=== PATIENT | female | born 1950 | race Caucasian/White ===

== ENCOUNTER 2018-12-30 13:34 | Emergency (ER) | payer OTHER ==
[2018-12-30 14:35] LABS: Absolute Lymphocytes (CBC) 2.2 K/uL (0.7-4.9); Absolute Monocytes 0.5 K/uL (0.1-1.3); Absolute Neutrophil 6.4 K/uL (1.8-8.0); Basophils % 0.7 % (0-1.3); Eosinophils % 1.9 % (0-4.4); Hematocrit 45.3 % (36.0-45.0); MPV 8.9 fL (7.6-11.3); Monocytes % 5.8 % (3.3-12.3); RBC Red Blood Cell Count 5.06 M/uL (3.86-4.86)
[2018-12-30 14:52] LABS: ALT/SGPT 22 U/L (12-78); AST/SGOT 15 U/L (15-37); Albumin 3.7 g/dL (3.4-5.0); Alkaline Phosphatase 126 U/L (45-117); BUN Blood Urea Nitrogen 14 mg/dL (7-18); Bicarbonate 31 mmol/L (21-32); Bilirubin Direct 0.1 mg/dL (0-0.2); Bilirubin Total 0.5 mg/dL (0.2-1.0); Glucose Level 99 mg/dL (74-106); NT PRO-BNP 202 pg/mL (<125); Protein, Total 7.4 g/dL (6.4-8.2); Sodium Level 140 mmol/L (136-145); Troponin (Emerg Dept Use Only) < 0.02 ng/mL (0.0-0.045)
[2018-12-30 14:57] LABS: Protime INR 1.02
--- NOTE | 2018-12-30 14:57 | RAD REPORT ---
EXAM DESCRIPTION: [place] Single View12/30/2018 2:46 pm CLINICAL HISTORY: Chest pain COMPARISON: none FINDINGS: The lungs appear clear of acute infiltrate. The heart is normal size IMPRESSION: No acute abnormalities displayed
--- NOTE | 2018-12-30 15:56 | RAD REPORT ---
EXAM DESCRIPTION: CT - Chest For Pe Angio - 12/30/2018 3:39 pm CLINICAL HISTORY: Chest pain, shortness of breath COMPARISON: Chest films date TECHNIQUE: Dynamically enhanced 3 mm thick images of the chest were obtained during administration o f approximately 150mL Isovue 370 IV contrast. Coronal and oblique MIP reconstruction images were gene rated and reviewed. Exam utilizes a protocol to evaluate the pulmonary arterial tree. All CT scans are performed using dose optimization technique as appropriate and may include automated exposure control or mA/KV adjustment according to patient size. FINDINGS: No pulmonary emboli are identified. The aorta as imaged shows no acute or suspicious finding. No pericardial thickening or effusion. No mass or focal infiltrate. Interstitial markings are minimally prominent. This is possibly baseline for the patient. Minimal amount of interstitial edema or infiltrate not excluded. Minimal atelectasi s changes are present. No pleural effusion or pleural thickening. No mediastinal or hilar suspicious masses. No chest wall masses or abnormal axillary lymphadenopathy. IMPRESSION: No pulmonary emboli identified. No focal infiltrate or focal lung parenchymal process seen. Interstitial markings are mildly prominen t which may be baseline for the patient. A minimal amount of interstitial edema or infiltrate not exc luded.
--- NOTE | 2018-12-30 16:34 | EDPHYS ---
Physician Documentation [facility] Name: Vonnie Phillips Age: 68 yrs Sex: Female : 1950 Arrival Date: 12/30/2018 Time: 13:35 Bed 18 Private MD: Joesph Myers H ED Physician Jarrett Roth HPI: 12/30 13:59 This 68 yrs old Female presents to ER via Ambulatory with complaints of Chest jmm Pressure, Shortness Of Breath. 13:59 The patient or guardian reports chest pain that is located primarily in the substernal [facility] area. Onset: gradually, 3 day(s) ago. The pain does not radiate. The chest pain is described as a pressure. Duration: The patient or guardian reports a single episode, that is still ongoing. This is a 68 year old female with a history of htn, that presents to the ED with complaints of chest pressure beginning 3 days ago and has been constant for the past 24 hours. Symptoms are worsened with exertion. Pain does not radiate. . Historical: - Allergies: 13:55 Topamax; sg 13:55 CEPHALOSPORINS; sg 13:55 Levofloxacin; sg 13:55 Sulfa (Sulfonamide Antibiotics); sg 13:59 Keflex; sg 13:59 PENICILLINS; sg 13:59 Augmentin; sg 13:59 Meprobamate; sg 13:59 Talwin; sg 13:59 Valium; sg 13:59 flexeprol; sg - Home Meds: 13:59 Wellbutrin Oral [Active]; Lamictal Oral [Active]; [place] Oral [Active]; sg - PMHx: 13:59 Hypertension; TIA; CEPHALGIA; LARYNGITIS; Kidney stones; Bipolar disorder; sg - PSHx: 13:59 Cholecystectomy; Tubal ligation; sg - Immunization history:: Adult Immunizations up to date. - Social history:: Smoking status: unknown. - Ebola Screening: : No symptoms or risks identified at this time. ROS: 13:59 Constitutional: Negative for fever, chills, and weight loss. jmm 13:59 Cardiovascular: Positive for chest pain. 13:59 Respiratory: Positive for shortness of breath. 13:59 All other systems are negative. Exam: 13:59 Constitutional: This is a well developed, well nourished patient who is awake, alert, jmm and in no acute distress. Head/Face: atraumatic. Eyes: EOMI, no conjunctival erythema appreciated ENT: Moist Mucus Membranes Neck: Trachea midline, Supple Chest/axilla: Normal chest wall appearance and motion. 13:59 Abdomen/GI: Non distended, soft Back: Normal ROM Skin: General appearance color normal MS/ Extremity: Moves all extremities, no obvious deformities appreciated, no edema noted to the lower extremities Neuro: Awake and alert, normal gait Psych: Behavior is normal, Mood is normal, Patient is cooperative and pleasant 13:59 Cardiovascular: Rate: normal, Rhythm: regular. 13:59 Respiratory: the patient does not display signs of respiratory distress, Respirations: normal, Breath sounds: are clear throughout. Vital Signs: 13:53 BP 181 / 71; Pulse 77; Resp 18; Temp 98.2; Pulse Ox 100% ; Weight 63.05 kg; Height 5 sg ft. 1 in. (154.94 cm); Pain 8/10; 15:03 BP 133 / 72; Pulse 62; Resp 11; Pulse Ox 100% on R/A; aj1 16:05 BP 167 / 76; Pulse 65; Resp 18; Pulse Ox 98% on R/A; aj1 13:53 Body Mass Index 26.26 (63.05 kg, 154.94 cm) MDM: 14:05 Patient medically screened. [facility] 16:32 Data reviewed: vital signs, nurses notes, lab test result(s), EKG, radiologic studies, [facility] plain films. Data interpreted: Pulse oximetry: on room air is 100 %. Interpretation: normal. Test interpretation: by ED physician or midlevel provider: ECG. ED course: I discussed the patient with Dr. Nuñez for admission. Admission was refused. Dr. Nuñez did visit the patient at bedside and offered a close cardiac follow up for tomorrow. The patient's case was discussed with Dr. Mishra whom will see the patient in clinic tomorrow morning at 0800. . 12/30 13:59 Order name: Basic Metabolic Panel; Complete Time: 15:[address] [facility] 12/30 13:59 Order name: CBC with Diff; Complete Time: 15:[address] [facility] 12/30 13:59 Order name: LFT's; Complete Time: 15:[address] [facility] 12/30 13:59 Order name: Magnesium; Complete Time: 15:[address] [facility] 12/30 13:59 Order name: NT PRO-BNP; Complete Time: 15:[address] [facility] 12/30 13:59 Order name: PT-INR; Complete Time: 15:[address] [facility] 12/30 13:59 Order name: Troponin (emerg Dept Use Only); Complete Time: 15:[address] [facility] 12/30 13:59 Order name: XRAY Chest (1 view); Complete Time: 15:[address] [facility] 12/30 13:59 Order name: EKG; Complete Time: 14:[address] [facility] 12/30 13:59 Order name: Cardiac monitoring; Complete Time: 14:[address] [facility] 12/30 13:59 Order name: EKG - Nurse/Tech; Complete Time: 14:[address] [facility] 12/30 13:59 Order name: IV Saline Lock; Complete Time: 14:[address] [facility] 12/30 13:59 Order name: Labs collected and sent; Complete Time: 14:[address] [facility] 12/30 15:17 Order name: CT Chest For PE Angio; Complete Time: 15:[address] [facility] 12/30 13:59 Order name: O2 Per Protocol; Complete Time: 14: [facility] 12/30 13:59 Order name: O2 Sat Monitoring; Complete Time: 14:[address] [facility] Administered Medications: No medications were administered Disposition: 12/30/18 16:33 Discharged to Home. Impression: Chest pain, unspecified. - Condition is Stable. - Discharge Instructions: Nonspecific Chest Pain. - Medication Reconciliation Form, Thank You Letter, Antibiotic Education, Prescription Opioid Use form. - Follow up: Sander Kang MD; When: Tomorrow; Reason: at 0800 am. Addendum: 12/31/2018 19:00 Co-signature as Attending Physician, Jarrett Roth MD I agree with the assessment and k dr plan of care. Signatures: Dispatcher [employer] EDMeghna Burch RN RN aj1 Martínez Goodman RN RN sg Rittger, Kevin, MD MD kdr Mickail, Joel, PA PA [facility] Corrections: (The following items were deleted from the chart) 12/30 17:06 16:33 12/30/2018 16:33 Discharged to Home. Impression: Chest pain, unspecified. aj1 Condition is Stable. Forms are Medication Reconciliation Form, Thank You Letter, Antibiotic Education, Prescription Opioid Use. Follow up: Sander Kang; When: Tomorrow; Reason: at 0800 am. guadalupe
--- NOTE | 2018-12-30 16:34 | ER ---
Nurse's Notes [facility] Name: Vonnie Phillips Age: 68 yrs Sex: Female : 1950 Arrival Date: 12/30/2018 Time: 13:35 Bed 18 Private MD: Joesph Myers H Diagnosis: Chest pain, unspecified Presentation: 12/30 13:38 Transition of care: patient was not received from another setting of care. Onset of sg symptoms was December 30, 2018. Risk Assessment: Do you want to hurt yourself or someone else? Patient reports no desire to harm self or others. Initial Sepsis Screen: Does the patient meet any 2 criteria? No. Patient's initial sepsis screen is negative. Does the patient have a suspected source of infection? No. Patient's initial sepsis screen is negative. Care prior to arrival: None. 13:38 Acuity: DARBY 3 sg 13:38 Method Of Arrival: Ambulatory sg 13:38 Presenting complaint: Patient states: Has had midsternal CP that feels like something sg sitting on my chest, indigestion and shortness of breath as well for several days, Was seen by PCP and told to take Zantac OTC, pt reports she went to Urgent care for the symptoms an EKG was done and she was instructed to come to the ED for evaluation. Historical: - Allergies: 13:55 Topamax; sg 13:55 CEPHALOSPORINS; sg 13:55 Levofloxacin; sg 13:55 Sulfa (Sulfonamide Antibiotics); sg 13:59 Keflex; sg 13:59 PENICILLINS; sg 13:59 Augmentin; sg 13:59 Meprobamate; sg 13:59 Talwin; sg 13:59 Valium; sg 13:59 flexeprol; sg - Home Meds: 13:59 Wellbutrin Oral [Active]; Lamictal Oral [Active]; [place] Oral [Active]; sg - PMHx: 13:59 Hypertension; TIA; CEPHALGIA; LARYNGITIS; Kidney stones; Bipolar disorder; sg - PSHx: 13:59 Cholecystectomy; Tubal ligation; sg - Immunization history:: Adult Immunizations up to date. - Social history:: Smoking status: unknown. - Ebola Screening: : No symptoms or risks identified at this time. Screenin:33 Abuse screen: Denies threats or abuse. Denies injuries from another. Nutritional aj1 screening: No deficits noted. Tuberculosis screening: No symptoms or risk factors identified. 16:53 Fall Risk None identified. aj1 Assessment: 14:33 General: Appears in no apparent distress. uncomfortable, Behavior is calm, cooperative, aj1 appropriate for age. Pain: Complains of pain in mid-sternal area Pain does not radiate. Pain currently is 5 out of 10 on a pain scale. Quality of pain is described as pressure, Pain began for several months, that has gotten worse over the past couple days Is intermittent. Neuro: Level of Consciousness is awake, alert, obeys commands, Oriented to person, place, time, situation. Cardiovascular: Reports chest pain, shortness of breath, Heart tones S1 S2 present Patient's skin is warm and dry. Rhythm is sinus rhythm. Respiratory: Reports shortness of breath Airway is patent Respiratory effort is even, unlabored, Respiratory pattern is regular, symmetrical, Breath sounds are clear bilaterally. GI: No signs and/or symptoms were reported involving the gastrointestinal system. : No signs and/or symptoms were reported regarding the genitourinary system. EENT: No signs and/or symptoms were reported regarding the EENT system. Derm: No signs and/or symptoms reported regarding the dermatologic system. Skin is pink, warm \T\ dry. normal. Musculoskeletal: No signs and/or symptoms reported regarding the musculoskeletal system. Circulation, motion, and sensation intact. 15:02 Reassessment: Patient appears in no apparent distress at this time. No changes from aj1 previously documented assessment. Patient and/or family updated on plan of care and expected duration. Pain level reassessed. Patient is alert, oriented x 3, equal unlabored respirations, skin warm/dry/pink. 16:05 Reassessment: Patient appears in no apparent distress at this time. No changes from aj1 previously documented assessment. Patient and/or family updated on plan of care and expected duration. Pain level reassessed. Patient is alert, oriented x 3, equal unlabored respirations, skin warm/dry/pink. Vital Signs: 13:53 BP 181 / 71; Pulse 77; Resp 18; Temp 98.2; Pulse Ox 100% ; Weight 63.05 kg; Height 5 sg ft. 1 in. (154.94 cm); Pain 8/10; 15:03 BP 133 / 72; Pulse 62; Resp 11; Pulse Ox 100% on R/A; aj1 16:05 BP 167 / 76; Pulse 65; Resp 18; Pulse Ox 98% on R/A; aj1 13:53 Body Mass Index 26.26 (63.05 kg, 154.94 cm) ED Course: 13:35 Patient arrived in ED. rg4 13:36 Joesph Myers DO is Private Physician. rg4 13:38 Arm band placed on. sg 13:39 Triage completed. 13:57 Saqib Dunn PA is PHCP. [facility] 13:57 Jarrett Roth MD is Attending Physician. jm 14:08 Meghna Gaona, RN is Primary Nurse. aj1 14:10 EKG done, by technology analyst. reviewed by Saqib BERNAL. 3 14:13 Patient has correct armband on for positive identification. Placed in gown. Bed in low mh5 position. Call light in reach. Warm blanket given. quality assurance monitor final on. Pulse ox on. NIBP on. 14:27 X-ray completed. Portable x-ray completed in exam room. Patient tolerated procedure jb2 well. 14:33 No provider procedures requiring assistance completed. Inserted saline lock: 22 gauge aj1 in right forearm, using aseptic technique. Blood collected. Patient maintains SpO2 saturation greater than 95% on room air. 14:47 XRAY Chest (1 view) In Process Unspecified. EDMS 15:39 CT Chest For PE Angio In Process Unspecified. EDMS 15:39 CT completed. Patient tolerated procedure well. Patient moved back from CT. sd 16:33 Sander Kang MD is Referral Physician. [facility] 16:52 IV discontinued, intact, bleeding controlled, No redness/swelling at site. Pressure aj1 dressing applied. Administered Medications: No medications were administered Outcome: 16:33 Discharge ordered by . [facility] 16:53 Discharged to home ambulatory. aj1 16:53 Condition: good 16:53 Discharge instructions given to patient, Instructed on discharge instructions, follow up and referral plans. Demonstrated understanding of instructions, follow-up care. 17:06 Patient left the ED. aj1 Signatures: Dispatcher [employer] EDMS Meghna Gaona, KELLY RN aj1 Martínez Goodman RN RN Saqib Dunn PA PA jmm Buechter, Jesse jb2 Angelic Preciado rg4 Jhonatan Telles Maria 5 Sharon Kearns 3
--- NOTE | 2018-12-31 06:52 | EKG ---
Test Date: 2018-12-30 Test Time: 14:05:25 Compression Molding Machine Setter: CHEPE MEASUREMENT RESULTS: Intervals: Rate: 65 GA: 138 QRSD: 74 QT: 420 QTc: 436 [place]: P: 49 GA: 138 QRS: 3 T: 73 INTERPRETIVE STATEMENTS: Normal sinus rhythm Nonspecific ST abnormality Abnormal ECG No previous ECG available for comparison Electronically Signed On 12-31-18 06:51:47 TURNTABLE ENGINEER by Sander Kang
== END 2018-12-30 17:06 | disposition home or self-care (01) ==
LOC: ER 13:34
DX: R07.9 Chest pain, unspecified (principal); I10 Essential (primary) hypertension; F31.9 Bipolar disorder, unspecified; Z88.0 Allergy status to penicillin; Z88.1 Allergy status to other antibiotic agents; Z88.2 Allergy status to sulfonamides; Z88.5 Allergy status to narcotic agent; Z88.8 Allergy status to other drugs, medicaments and biological substances
CPT/HCPCS: 36415; 71045; 71275; 80048; 80076; 83735; 83880; 84484; 85025; 85610; 93005; 99285; Q9967

== ENCOUNTER 2019-01-12 06:47 | Day surgery (SDC) | payer OTHER ==
[2019-01-10 14:48] LABS: Absolute Lymphocytes (CBC) 2.3 K/uL (0.7-4.9); Absolute Monocytes 0.5 K/uL (0.1-1.3); Absolute Neutrophil 5.6 K/uL (1.8-8.0); Basophils % 0.7 % (0-1.3); Eosinophils % 1.8 % (0-4.4); Hematocrit 42.9 % (36.0-45.0); Lymphocytes % 26.1 % (15.3-44.8); MPV 9.7 fL (7.6-11.3); Monocytes % 6.2 % (3.3-12.3); RBC Red Blood Cell Count 4.73 M/uL (3.86-4.86)
[2019-01-10 15:02] LABS: Potassium 4.1 mmol/L (3.5-5.1)
[2019-01-10 15:19] LABS: Protime INR 0.98
[2019-01-12] MEDS ORDERED: NA CHLORIDE 0.9% 500 ML ONE (08:07)
[2019-01-12] MEDS ORDERED: HEPA 1000U/500MLS 2,000 UNIT/1,000 ML BAG IV ONE (08:24)
[2019-01-12] MEDS ORDERED: ATROPINE SULF 1 MG/10 ML SYR IV ONE (08:43)
[2019-01-12] MEDS ORDERED: MIDAZOLAM HCL 2 MG/2 ML INJ ONE (08:43)
[2019-01-12] MEDS ORDERED: HEPARIN 5000 UNIT/ML 1 ML VIAL ONE (08:43)
[2019-01-12] MEDS ORDERED: FENTANYL CITR 100 MCG/2 ML ONE (08:43)
[2019-01-12] MEDS ORDERED: NITROGLYCERIN 100 MCG/ML SYR (for cath lab use only) IV ONE (08:43)
[2019-01-12] MEDS ORDERED: NA CHLORIDE 0.9% 0 ML ONE (08:43)
[2019-01-12] MEDS ORDERED: NICARDIPINE HCL 25 MG/10 ML IV ONE (08:43)
--- NOTE | 2019-01-12 18:24 | OP ---
Surgeon: Roberto Carlos Sanchez MD Additional Attending Physician: Joesph Myers D.O. Procedures: Left heart catheterization with coronary left ventricular angiography. Procedure Findings: The patient has normal coronary arteries. Normal left ventricular ejection frac tion. Normal left ventricular end-diastolic pressure. Systolic hypertension. Her blood pressure by catheter was 154/74. Procedure In Detail: The patient was brought to the cardiac supervisor labor gang in a fasting state. She gave i nformed consent. She had an abnormal Cardiolite stress test. She was prepared and draped in the usu al sterile fashion. Right radial artery was used. She had passed the Han's test and Barbeau test. Right radial artery tissues were anesthetized with 1% lidocaine. A 21-gauge needle was inserted in to the artery and then the artery was cannulated with a 0.021 inch diameter guidewire. We used this to insert a 6-Leb[place] Terumo radial sheath. We flushed the sheath and gave a radial cocktail consisti ng of nicardipine, heparin, and nitroglycerin. We used a TIG catheter and guided it into the ascendi ng aorta using fluoroscopy and a AorTxumo Glidewire with a short radius J-tip. We were able to angiogr am right coronary, left coronary, left ventricle, all with the same catheter. At the end of the proc edure after findings were reviewed carefully, we removed the catheter over a J-wire to keep it straig ht. We flushed the sheath, removed it and closed the arteriotomy using a TR band. Complications: None. Estimated Blood Loss: 5 cc. Mohel: Noah Blackwood. CATALINA Voice ID: [id number] Report ID: [id number]
== END 2019-01-12 11:23 | disposition home or self-care (01) ==
LOC: CCL 06:47
DX: R07.89 Other chest pain (principal); I10 Essential (primary) hypertension; F31.9 Bipolar disorder, unspecified; Z82.49 Family history of ischemic heart disease and other diseases of the circulatory system; R63.4 Abnormal weight loss; Z79.899 Other long term (current) drug therapy
CPT/HCPCS: 85025; 80048; 36415; 85610; 85730; 93458; C1893; J1644; J2250; J3010; J0583

== ENCOUNTER 2019-05-30 11:08 | Emergency (ER) | payer OTHER ==
[2019-05-30] MEDS ORDERED: HYDROCODONE/APAP 10/325 TAB ONE (12:14)
--- NOTE | 2019-05-30 12:58 | RAD REPORT ---
EXAM DESCRIPTION: RAD - Ankle Left 3 View -05/30/2019 12:47 pm CLINICAL HISTORY: Left ankle pain FINDINGS: A sideplate and screws affix lateral and medial malleolar fractures. Mild osteoarthritis consistent joint space narrowing. No acute fracture or dislocation seen Soft tissue swelling is present
--- NOTE | 2019-05-30 13:01 | RAD REPORT ---
EXAM DESCRIPTION: RAD - Foot Left 3 View - 05/30/2019 12:46 pm CLINICAL HISTORY: Left Foot pain FINDINGS: Nondisplaced fractures involve the proximal aspects of the first, second and third metatar sals. No dislocation seen
--- NOTE | 2019-05-30 13:32 | EDPHYS ---
Physician Documentation [facility] Name: Vonnie Phillips Age: 68 yrs Sex: Female : 1950 Arrival Date: 05/30/2019 Time: 11:10 Bed 7 Private MD: Joesph Myers H ED Physician Jarrett Roth HPI: 05/30 12:33 This 68 yrs old Female presents to ER via Wheelchair with complaints of Foot kdr Injury. 12:33 The patient presents with decreased range of motion, an injury, pain, that is acute, kdr tenderness. The complaints affect the left foot. Context: The problem was sustained at home, resulted from the patient falling, while walking, a mis-step by the patient, Mechanism of Injury: Unknown the patient is not able to bear weight, the patient is not able to ambulate. Onset: The symptoms/episode began/occurred acutely, suddenly, at 09:30. Modifying factors: The symptoms are alleviated by elevation of extremity, ice packs, the symptoms are aggravated by weight bearing, movement. Associated signs and symptoms: The patient has no apparent associated signs or symptoms. Severity of symptoms: At their worst the symptoms were mild, in the emergency department the symptoms are unchanged. The patient has not experienced similar symptoms in the past. The patient has not recently seen a physician. Historical: - Allergies: 11:23 Augmentin; aj 11:23 CEPHALOSPORINS; aj 11:23 flexeprol; aj 11:23 Keflex; aj 11:23 Levofloxacin; aj 11:23 Meprobamate; aj 11:23 PENICILLINS; aj 11:23 Sulfa (Sulfonamide Antibiotics); aj 11:23 Talwin; aj 11:23 Topamax; aj 11:23 Valium; aj - Home Meds: 11:23 Lamictal Oral [Active]; [place] Oral [Active]; Wellbutrin Oral [Active]; Cardizem Oral aj [Active]; - PMHx: 11:23 Bipolar disorder; CEPHALGIA; Hypertension; Kidney stones; LARYNGITIS; TIA; aj - PSHx: 11:23 Cholecystectomy; Tubal ligation; aj - Immunization history:: Adult Immunizations up to date. - Social history:: Smoking status: Patient/guardian denies using tobacco. - Ebola Screening: : Patient negative for fever greater than or equal to 101.5 degrees Fahrenheit, and additional compatible Ebola Virus Disease symptoms Patient denies exposure to infectious person Patient denies travel to an Ebola-affected area in the 21 days before illness onset No symptoms or risks identified at this time. ROS: 12:33 Constitutional: Negative for fever, chills, and weight loss, Eyes: Negative for injury, kdr pain, redness, and discharge, Neck: Negative for injury, pain, and swelling, Cardiovascular: Negative for chest pain, palpitations, and edema. 12:33 MS/extremity: Positive for decreased range of motion, pain, swelling, tenderness, of the left lateral ankle, lateral aspect of left foot, left medial ankle and medial aspect of left foot. Exam: 12:33 Constitutional: This is a well developed, well nourished patient who is awake, alert, kdr and in no acute distress. Head/Face: Normocephalic, atraumatic. 12:33 Musculoskeletal/extremity: Extremities: grossly normal except: noted in the lateral aspect of left foot, left medial ankle, medial aspect of left foot and dorsum of left foot: decreased ROM, pain, swelling, tenderness. Vital Signs: 11:23 BP 114 / 52; Pulse 48; Resp 16; Temp 97.4; Pulse Ox 100% on R/A; Weight 68.04 kg; aj Height 5 ft. 1 in. (154.94 cm); 11:23 BP 153 / 61; Pulse 51; Resp 16; Pulse Ox 99% ; bp 12:28 BP 117 / 70; Pulse 59; Resp 18; Pulse Ox 97% on R/A; hj 13:52 BP 126 / 64; Pulse 65; Resp 16; Temp 97.5; Pulse Ox 98% ; bp 11:23 Body Mass Index 28.34 (68.04 kg, 154.94 cm) aj MDM: 12:33 Data reviewed: vital signs, nurses notes, radiologic studies. Counseling: I had a kdr detailed discussion with the patient and/or guardian regarding: the historical points, exam findings, and any diagnostic results supporting the discharge/admit diagnosis, radiology results, the need for outpatient follow up. 13:31 Patient medically screened. kdr 05/30 11:51 Order name: Ankle Left 3 View XRAY; Complete Time: 13:26 kdr 05/30 11:51 Order name: Foot Left 3 View XRAY; Complete Time: 13:26 kdr 05/30 13:29 Order name: Donell Wrap: Foot; Complete Time: 13:54 kdr 05/30 13:29 Order name: Post-op shoe; Complete Time: 13:54 kdr 05/30 13:52 Order name: Crutches; Complete Time: 13:54 bp Administered Medications: 11:57 Drug: [place] 10 mg-325 mg 1 tabs Route: PO; bp 13:12 Follow up: Response: Pain is decreased bp Disposition: 05/30/19 13:31 Discharged to Home. Impression: Nondisplaced fracture of third metatarsal bone, left foot, Nondisplaced fracture of second metatarsal bone, left foot, Nondisplaced fracture of first metatarsal bone, left foot. - Condition is Stable. - Discharge Instructions: Metatarsal Fracture. - Prescriptions for Tylenol- Codeine #3 300-30 mg Oral Tablet - take 2 tablet by ORAL route every 6 hours As needed; 30 tablet. - Medication Reconciliation Form, Thank You Letter, Prescription Opioid Use form. - Follow up: River Hazel MD; When: 2 - 3 days; Reason: If symptoms return, Further diagnostic work-up, Recheck today's complaints, Continuance of care, Re-evaluation by your physician. - Problem is new. - Symptoms have improved. Signatures: Dispatcher [employer] EDTiara Adair, RN RN aj Jarrett Roth MD MD kdr Brendan Martinez RN RN bp Corrections: (The following items were deleted from the chart) 13:55 13:31 05/30/2019 13:31 Discharged to Home. Impression: Nondisplaced fracture of third bp metatarsal bone, left foot; Nondisplaced fracture of second metatarsal bone, left foot; Nondisplaced fracture of first metatarsal bone, left foot. Condition is Stable. Forms are Medication Reconciliation Form, Thank You Letter, Antibiotic Education, Prescription Opioid Use. Follow up: Dr. River Hazel; When: 2 - 3 days; Reason: If symptoms return, Further diagnostic work-up, Recheck today's complaints, Continuance of care, Re-evaluation by your physician. Problem is new. Symptoms have improved. kdr
--- NOTE | 2019-05-30 13:32 | ER ---
Nurse's Notes [facility] Name: Vonnie Phillips Age: 68 yrs Sex: Female : 1950 Arrival Date: 05/30/2019 Time: 11:10 Bed 7 Private MD: Joesph Myers H Diagnosis: Nondisplaced fracture of third metatarsal bone, left foot;Nondisplaced fracture of second metatarsal bone, left foot;Nondisplaced fracture of first metatarsal bone, left foot Presentation: 05/30 11:21 Presenting complaint: Patient states: Left foot pain since this AM when patient twisted aj ankle. Transition of care: patient was not received from another setting of care. Onset of symptoms was May 30, 2019. Risk Assessment: Do you want to hurt yourself or someone else? Patient reports no desire to harm self or others. Initial Sepsis Screen: Does the patient meet any 2 criteria? No. Patient's initial sepsis screen is negative. Does the patient have a suspected source of infection? No. Patient's initial sepsis screen is negative. Care prior to arrival: None. 11:21 Method Of Arrival: Wheelchair aj 11:21 Acuity: DARBY 3 aj Triage Assessment: 11:23 General: Appears in no apparent distress. comfortable, Behavior is calm, cooperative, aj appropriate for age. Neuro: Level of Consciousness is awake, alert, obeys commands, Oriented to person, place, time, situation, Appropriate for age. Respiratory: Airway is patent Respiratory effort is even, unlabored, Respiratory pattern is regular, symmetrical. Derm: Skin is intact, is healthy with good turgor, Skin is pink, warm \T\ dry. normal. Injury Description: Bruise sustained to right foot. Historical: - Allergies: 11:23 Augmentin; aj 11:23 CEPHALOSPORINS; aj 11:23 flexeprol; aj 11:23 Keflex; aj 11:23 Levofloxacin; aj 11:23 Meprobamate; aj 11:23 PENICILLINS; aj 11:23 Sulfa (Sulfonamide Antibiotics); aj 11:23 Talwin; aj 11:23 Topamax; aj 11:23 Valium; aj - Home Meds: 11:23 Lamictal Oral [Active]; Dillingham Oral [Active]; Wellbutrin Oral [Active]; Cardizem Oral aj [Active]; - PMHx: 11:23 Bipolar disorder; CEPHALGIA; Hypertension; Kidney stones; LARYNGITIS; TIA; aj - PSHx: 11:23 Cholecystectomy; Tubal ligation; aj - Immunization history:: Adult Immunizations up to date. - Social history:: Smoking status: Patient/guardian denies using tobacco. - Ebola Screening: : Patient negative for fever greater than or equal to 101.5 degrees Fahrenheit, and additional compatible Ebola Virus Disease symptoms Patient denies exposure to infectious person Patient denies travel to an Ebola-affected area in the 21 days before illness onset No symptoms or risks identified at this time. Screenin:23 Abuse screen: Denies threats or abuse. Denies injuries from another. Nutritional bp screening: No deficits noted. Tuberculosis screening: No symptoms or risk factors identified. Fall Risk None identified. Assessment: 11:22 General: Appears in no apparent distress. uncomfortable, obese, Behavior is bp cooperative, appropriate for age, anxious. Pain: Complains of pain in right foot. Neuro: No deficits noted. Cardiovascular: No deficits noted. Respiratory: No deficits noted. GI: No signs and/or symptoms were reported involving the gastrointestinal system. : No signs and/or symptoms were reported regarding the genitourinary system. EENT: No deficits noted. Derm: No deficits noted. Musculoskeletal: R ANKLE PAIN. 12:30 Reassessment: XRAY COMPLETED, RESULTS PENDING. bp 13:54 Reassessment: PT D/C HOME VIA W/C WITH FAMILY, DX WITH METATARSAL FRACTURE. bp Vital Signs: 11:23 BP 114 / 52; Pulse 48; Resp 16; Temp 97.4; Pulse Ox 100% on R/A; Weight 68.04 kg; aj Height 5 ft. 1 in. (154.94 cm); 11:23 BP 153 / 61; Pulse 51; Resp 16; Pulse Ox 99% ; bp 12:28 BP 117 / 70; Pulse 59; Resp 18; Pulse Ox 97% on R/A; hj 13:52 BP 126 / 64; Pulse 65; Resp 16; Temp 97.5; Pulse Ox 98% ; bp 11:23 Body Mass Index 28.34 (68.04 kg, 154.94 cm) ED Course: 11:10 Patient arrived in ED. as 11:10 Joesph Myers DO is Private Physician. as 11:10 Jarrett Roth MD is Attending Physician. kdr 11:21 Brendan Martinez, RN is Primary Nurse. bp 11:22 Triage completed. aj 11:23 Patient has correct armband on for positive identification. Bed in low position. Call bp light in reach. Side rails up X2. Adult w/ patient. 11:23 Arm band placed on right wrist. Patient placed in an exam room. aj 12:44 Ankle Left 3 View XRAY In Process Unspecified. EDMS 12:44 Foot Left 3 View XRAY In Process Unspecified. EDMS 13:30 River Hazel MD is Referral Physician. kdr 13:52 No provider procedures requiring assistance completed. Crutch training done. Donell wrap bp to left ankle Ortho shoe applied to left foot. 13:53 Patient did not have IV access during this emergency room visit. bp Administered Medications: 11:57 Drug: Dillingham 10 mg-325 mg 1 tabs Route: PO; bp 13:12 Follow up: Response: Pain is decreased bp Outcome: 13:31 Discharge ordered by . kdr 13:53 Discharged to home via wheelchair, with crutches, with family. bp 13:53 Condition: stable 13:53 Discharge instructions given to patient, Instructed on discharge instructions, follow up and referral plans. medication usage, crutch walking, Demonstrated understanding of instructions, follow-up care, medications, crutch walking, Prescriptions given X 1. 13:55 Patient left the ED. bp Signatures: Dispatcher [employer] EDIL Tiara Oneal RN RN aj Rittger, Kevin, MD MD kdr Whit Nichole Henry, RN RN Brendan Martinez, KELLY RN bp
== END 2019-05-30 13:55 | disposition home or self-care (01) ==
LOC: ER 11:08
DX: S92.315A Nondisplaced fracture of first metatarsal bone, left foot, initial encounter for closed fracture (principal); S92.325A Nondisplaced fracture of second metatarsal bone, left foot, initial encounter for closed fracture; S92.335A Nondisplaced fracture of third metatarsal bone, left foot, initial encounter for closed fracture; W19.XXXA Unspecified fall, initial encounter; Y93.01 Activity, walking, marching and hiking; Y92.009 Unspecified place in unspecified non-institutional (private) residence as the place of occurrence of the external cause; I10 Essential (primary) hypertension; F31.9 Bipolar disorder, unspecified; Z88.0 Allergy status to penicillin; Z88.1 Allergy status to other antibiotic agents; Z88.2 Allergy status to sulfonamides; Z88.3 Allergy status to other anti-infective agents; Z88.5 Allergy status to narcotic agent; Z88.8 Allergy status to other drugs, medicaments and biological substances
CPT/HCPCS: 99284

== ENCOUNTER 2021-01-18 10:40 | Emergency (ER) | payer OTHER, MEDICARE ==
--- NOTE | 2021-01-18 12:54 | ER ---
[facility] Name: Vonnie Phillips Age: 70 yrs Sex: Female : 1950 Arrival Date: 01/18/2021 Time: 10:53 Bed 13 Private MD: Joesph Myers H Diagnosis: Low back pain Presentation: 01/18 11:12 Chief complaint: Patient states: L Lower back pain since Thursday. I got a pinch nerve ca1 last Thursday. Been hurting since then. Took arthritis and ibuprofen, no relief. Coronavirus screen: Client denies travel out of the [place] in the last 14 days. At this time, the client does not indicate any symptoms associated with coronavirus-19. Ebola Screen: Patient negative for fever greater than or equal to 101.5 degrees Fahrenheit, and additional compatible Ebola Virus Disease symptoms Patient denies exposure to infectious person. Patient denies travel to an Ebola-affected area in the 21 days before illness onset. No symptoms or risks identified at this time. Initial Sepsis Screen: Does the patient meet any 2 criteria? No. Patient's initial sepsis screen is negative. Does the patient have a suspected source of infection? No. Patient's initial sepsis screen is negative. Risk Assessment: Do you want to hurt yourself or someone else? Patient reports no desire to harm self or others. Onset of symptoms was January 18, 2021. 11:12 Method Of Arrival: Wheelchair ca1 11:12 Acuity: DARBY 4 ca1 Historical: - Allergies: 11:16 Augmentin; ca1 11:16 CEPHALOSPORINS; ca1 11:16 flexeprol; ca1 11:16 Keflex; ca1 11:16 Levofloxacin; ca1 11:16 Meprobamate; ca1 11:16 PENICILLINS; ca1 11:16 Sulfa (Sulfonamide Antibiotics); ca1 11:16 Talwin; ca1 11:16 Topamax; ca1 11:16 Valium; ca1 - PMHx: 11:16 Bipolar disorder; CEPHALGIA; Hypertension; Kidney stones; LARYNGITIS; TIA; ca1 - PSHx: 11:16 Cholecystectomy; Tubal ligation; ca1 - Immunization history:: Client reports receiving the 1st dose of the Covid vaccine, January 03, 2021 Pneumococcal vaccine is up to date, Flu vaccine is up to date. - Social history:: Smoking status: Patient denies any tobacco usage or history of. Screenin:02 Abuse screen: Denies threats or abuse. Denies injuries from another. Nutritional iw screening: No deficits noted. Tuberculosis screening: No symptoms or risk factors identified. Fall Risk None identified. Assessment: 13:01 General: Appears in no apparent distress. Behavior is calm, cooperative. Pain: iw Complains of pain in right low back. Pain: Pain radiates to left leg. Neuro: Level of Consciousness is awake, alert, obeys commands, Oriented to person, place, time, situation. Cardiovascular: Patient's skin is warm and dry. Respiratory: Respiratory effort is even, unlabored, Respiratory pattern is regular, symmetrical. Derm: Skin is intact. Musculoskeletal: Range of motion: intact in all extremities, Reports pain in back and left leg. Vital Signs: 11:12 BP 138 / 62; Pulse 63; Resp 16 S; Temp 98.2(TE); Pulse Ox 100% on R/A; Weight 68.04 kg ca1 (R); Height 5 ft. 1 in. (154.94 cm) (R); Pain 10/10; 11:12 Body Mass Index 28.34 (68.04 kg, 154.94 cm) ca1 ED Course: 10:53 Patient arrived in ED. as 10:53 Joesph Myers DO is Private Physician. as 11:15 Triage completed. ca1 11:16 Arm band placed on right wrist. ca1 12:17 Cooper Sanders PA is PHCP. jr8 12:17 Jarrett Roth MD is Attending Physician. jr8 12:52 Joyce Davenport, KELLY is Primary Nurse. iw 12:53 Joesph Myers DO is Referral Physician. jr8 12:58 Joyce Davenport, KELLY is Primary Nurse. iw 13:02 No provider procedures requiring assistance completed. Patient did not have IV access iw during this emergency room visit. 13:05 Patient has correct armband on for positive identification. iw Administered Medications: 12:58 Drug: TORadol - Ketorolac 15 mg Route: IM; Site: right deltoid; iw Outcome: 12:53 Discharge ordered by . jr8 13:12 Discharged to home via wheelchair, with friend. iw 13:12 Condition: good 13:12 Discharge instructions given to patient, Instructed on discharge instructions, follow up and referral plans. medication usage, Demonstrated understanding of instructions, follow-up care, medications, Prescriptions given X 2. 13:13 Patient left the ED. iw Signatures: Whit Nichole Irene, RN RN iw Cooper Sanders PA PA jr8 Keara Rock RN RN ca1 Corrections: (The following items were deleted from the chart) 11:16 11:12 Coronavirus screen: Client denies travel out of the [place] in the last 14 days. At ca1 this time, the client does not indicate any symptoms associated with coronavirus-19. ca1 11:16 11:12 Immunization history: Client reports receiving the 1st dose of the Covid vaccine, ca1 December 2020 Pneumococcal vaccine is up to date, Flu vaccine is up to date. ca1
--- NOTE | 2021-01-18 12:54 | EDPHYS ---
Physician Documentation [facility] Name: Vonnie Phillips Age: 70 yrs Sex: Female : 1950 Arrival Date: 01/18/2021 Time: 10:53 Bed 13 Private MD: Joesph Myers H ED Physician Jarrett Roth HPI: 01/18 12:31 This 70 yrs old Female presents to ER via Wheelchair with complaints of Back jr8 Pain, Leg Pain. 12:31 This 70 yrs old Female presents to ER via Wheelchair with complaints of Back jr8 Pain, Leg Pain. 12:31 The patient presents with pain that is chronic, with no known mechanism of injury, and jr8 decreased range of motion, and tenderness. The symptoms are located in the low back. Onset: The symptoms/episode began/occurred last week. The pain radiates to the right leg and left leg. Associated signs and symptoms: Pertinent positives: numbness, tingling. The patient has experienced similar episodes in the past, several times. 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 She reports to day she has increased lumbar pain radiating to bilat legs with numbness and tingling. She denies loss of continence and can ambulate. . Historical: - Allergies: 11:16 Augmentin; ca1 11:16 CEPHALOSPORINS; ca1 11:16 flexeprol; ca1 11:16 Keflex; ca1 11:16 Levofloxacin; ca1 11:16 Meprobamate; ca1 11:16 PENICILLINS; ca1 11:16 Sulfa (Sulfonamide Antibiotics); ca1 11:16 Talwin; ca1 11:16 Topamax; ca1 11:16 Valium; ca1 - PMHx: 11:16 Bipolar disorder; CEPHALGIA; Hypertension; Kidney stones; LARYNGITIS; TIA; ca1 - PSHx: 11:16 Cholecystectomy; Tubal ligation; ca1 - Immunization history:: Client reports receiving the 1st dose of the Covid vaccine, January 03, 2021 Pneumococcal vaccine is up to date, Flu vaccine is up to date. - Social history:: Smoking status: Patient denies any tobacco usage or history of. ROS: 12:33 Cardiovascular: Negative for chest pain, palpitations, and edema, Respiratory: Negative jr8 for shortness of breath, cough, wheezing, and pleuritic chest pain, Abdomen/GI: Negative for abdominal pain, nausea, vomiting, diarrhea, and constipation, Skin: Negative for injury, rash, and discoloration, Neuro: Negative for headache, weakness, numbness, tingling, and seizure. 12:33 Back: Positive for decreased range of motion, pain with movement, radiated pain, of the lumbar area and sacrum. 12:33 MS/extremity: Positive for paresthesias, tingling, of the right leg and left leg. Exam: 12:34 Chest/axilla: Normal chest wall appearance and motion. Nontender with no deformity. jr8 No lesions are appreciated. Cardiovascular: Regular rate and rhythm with a normal S1 and S2. No gallops, murmurs, or rubs. Normal PMI, no JVD. No pulse deficits. Respiratory: Lungs have equal breath sounds bilaterally, clear to auscultation and percussion. No rales, rhonchi or wheezes noted. No increased work of breathing, no retractions or nasal flaring. Abdomen/GI: Soft, non-tender, with normal bowel sounds. No distension or tympany. No guarding or rebound. No evidence of tenderness throughout. Female : Normal external genitalia. Skin: Warm, dry with normal turgor. Normal color with no rashes, no lesions, and no evidence of cellulitis. Neuro: Awake and alert, GCS 15, oriented to person, place, time, and situation. Cranial nerves II-XII grossly intact. Motor strength 5/5 in all extremities. Sensory grossly intact. Cerebellar exam normal. Normal gait. 12:34 Back: pain, that is moderate, of the lumbar area and sacrum, ROM is painful, with all movement, normal spinal alignment noted, CVA tenderness, is absent, vertebral tenderness, is appreciated at L1, L2, L3, L4, L5 and sacrum. 12:34 Musculoskeletal/extremity: Extremities: Sensation intact. Vital Signs: 11:12 BP 138 / 62; Pulse 63; Resp 16 S; Temp 98.2(TE); Pulse Ox 100% on R/A; Weight 68.04 kg ca1 (R); Height 5 ft. 1 in. (154.94 cm) (R); Pain 10/10; 11:12 Body Mass Index 28.34 (68.04 kg, 154.94 cm) ca1 MDM: 12:17 Patient medically screened. jr8 12:35 Data reviewed: vital signs, nurses notes. Data interpreted: town manager: rate is 63 jr8 beats/min, Pulse oximetry: on room air is 100 %. Interpretation: normal. 12:39 ED course: Educated pt on when to return to ED: loss of continence, inability to go to [facility] bathroom, increased numbness or tingling and loss of function. Educated on home meds and followup with ortho.. 12:52 Counseling: I had a detailed discussion with the patient and/or guardian regarding: the 8 historical points, exam findings, and any diagnostic results supporting the discharge/admit diagnosis, the need for outpatient follow up, a family practitioner, to return to the emergency department if symptoms worsen or persist or if there are any questions or concerns that arise at home. Administered Medications: 12:58 Drug: TORadol - Ketorolac 15 mg Route: IM; Site: right deltoid; Disposition: 18:47 Co-signature as Attending Physician, Jarrett Roth MD I agree with the assessment and kdr plan of care. Disposition: 01/18/21 12:53 Discharged to Home. Impression: Low back pain. - Condition is Stable. - Discharge Instructions: Back Pain, Adult, Heat Therapy. - Prescriptions for meloxicam 7.5 mg Oral tablet - take 1 tablet by ORAL route once daily As needed; 20 tablet. Cyclobenzaprine 10 mg Oral Tablet - take 1 tablet by ORAL route every 8 hours As needed; 30 tablet. Medrol (Benja) 4 mg Oral Tablets, Dose Pack - take 1 tablet by ORAL route as directed - follow package instructions; 1 packet. - Medication Reconciliation Form, Thank You Letter, Antibiotic Education, Prescription Opioid Use form. - Follow up: Joesph Myers DO; When: 5 - 6 days; Reason: Recheck today's complaints, Continuance of care, Re-evaluation by your physician. - Problem is new. - Symptoms have improved. Signatures: Jarrett Roth MD MD [facility] Joyce Davenport, RN RN iw Cooper Sanders PA PA jr8 Keara Rock RN RN ca1 Corrections: (The following items were deleted from the chart) 11:16 11:12 Immunization history: Client reports receiving the 1st dose of the Covid vaccine, ca1 December 2020 Pneumococcal vaccine is up to date, Flu vaccine is up to date. ca1 13:13 12:53 01/18/2021 12:53 Discharged to Home. Impression: Low back pain. Condition is iw Stable. Forms are Medication Reconciliation Form, Thank You Letter, Antibiotic Education, Prescription Opioid Use. Follow up: Joesph Myers; When: 5 - 6 days; Reason: Recheck today's complaints, Continuance of care, Re-evaluation by your physician. Problem is new. Symptoms have improved. jr8
[2021-01-18] MEDS ORDERED: KETOROLAC 30 MG/ML INJ ONE (13:12)
[2021-01-18 13:22] VITALS: BP 138/62; TEMP 98.2; O2SAT 100
== END 2021-01-18 13:13 | disposition home or self-care (01) ==
LOC: ER 10:40
DX: M54.5 Low back pain (principal); I10 Essential (primary) hypertension; Z88.0 Allergy status to penicillin; Z88.1 Allergy status to other antibiotic agents; Z88.2 Allergy status to sulfonamides; Z88.3 Allergy status to other anti-infective agents; Z88.5 Allergy status to narcotic agent; Z88.8 Allergy status to other drugs, medicaments and biological substances
CPT/HCPCS: 96372; 99283

== ENCOUNTER 2022-10-28 12:15 | Emergency (ER) | payer MEDICARE, OTHER ==
--- NOTE | 2022-10-28 14:14 | RAD REPORT ---
EXAM DESCRIPTION: RAD - Chest Single View - 10/28/2022 1:46 pm CLINICAL HISTORY: Cough COMPARISON: Chest Single View dated 12/30/2018 FINDINGS: Lines: None. Lungs: No evidence of edema or pneumonia. Pleural: No significant pleural effusions or pneumothorax. Cardiac: The heart size is within normal limits. Mediastinum: Within normal limits. Bones: No acute fractures. Other: None IMPRESSION: No acute cardiopulmonary disease.
[2022-10-28 14:41] LABS: Absolute Lymphocytes (CBC) 2.7 K/uL (0.7-4.9); Hematocrit 40.3 % (36.0-45.0); Lymphocytes % 21.2 % (15.3-44.8); MCV 89.7 fL (80-100); MPV 8.7 fL (7.6-11.3); RBC Red Blood Cell Count 4.49 M/uL (3.86-4.86)
[2022-10-28 14:57] LABS: Albumin 3.4 g/dL (3.4-5.0); Bilirubin Direct 0.1 mg/dL (0-0.2); Bilirubin Total 0.5 mg/dL (0.2-1.0); Magnesium 2.1 mg/dL (1.6-2.4); Potassium 4.1 mmol/L (3.5-5.1); Protein, Total 6.7 g/dL (6.4-8.2); Troponin High Sensitivity 42.2 pg/mL (<58.9)
--- NOTE | 2022-10-28 15:37 | RAD REPORT ---
EXAM DESCRIPTION: CT - Chest For Pe Angio - 10/28/2022 3:26 pm CLINICAL HISTORY: SOB, positive d-dimer COMPARISON: Chest For Pe Angio dated 12/30/2018; Chest Single View dated 10/28/2022 TECHNIQUE: Dynamically enhanced axial 3 mm thick images of the chest were obtained during administra tion of <100> mL Isovue 370 IV contrast. Coronal and oblique reconstruction images were generated and reviewed. Exam utilizes a protocol for optimal evaluation of pulmonary arterial tree. Maximum intensity projections 3D imaging was utilized All CT scans are performed using dose optimization technique as appropriate and may include automated exposure control or mA/KV adjustment according to patient size. FINDINGS: Chest Wall: No suspicious thyroid nodules or pathologic lymphadenopathy. Lungs: Low lung volumes with mosaic lung attenuation. No consolidative airspace disease. No suspiciou s pulmonary nodules. Pleura: No significant effusions or pneumothorax. Mediastinum/nik: No pathologic lymphadenopathy. Pulmonary arteries/Aorta: No filling defect identified. No aortic aneurysm. Heart: No significant pericardial effusion. Normal heart size. Mitral annular calcification. Upper abdomen: No acute abnormality. Bones: No acute abnormality. IMPRESSION: Negative for pulmonary embolism. Mosaic lung attenuation could indicate small airways di sease.
--- NOTE | 2022-10-28 17:11 | EDPHYS ---
Physician Documentation [facility] Name: Vonnie Phillips Age: 71 yrs Sex: Female : 1950 Arrival Date: 10/28/2022 Time: 12:20 Bed 14 Private MD: DILCIA Physician Bora Reardon HPI: 10/28 13:14 This 71 yrs old Female presents to ER via Ambulatory with complaints of Shortness Of pm1 Breath, Coughing Up Blood. 13:14 The patient or guardian reports cough, with productive sputum, Clear with bright red pm1 blood, shortness of breath that has resolved. Onset: The symptoms/episode began/occurred this morning, at 01:00. Severity of symptoms: in the emergency department the symptoms have resolved. Modifying factors: The symptoms are alleviated by nothing, the symptoms are aggravated by nothing. Associated signs and symptoms: Pertinent positives: chest pain, with cough, Pertinent negatives: fever, rhinorrhea, sore throat. The patient has experienced a previous episode, approximately 1 years ago, Bronchitis that was treated with antibiotic therapy by his PCP. The patient has not recently seen a physician. Historical: - Allergies: 12:32 flexeprol; ll1 12:32 Keflex; ll1 12:32 Meprobamate; ll1 12:32 PENICILLINS; ll1 12:32 Sulfa (Sulfonamide Antibiotics); ll1 12:32 Talwin; ll1 12:32 Topamax; ll1 12:32 CEPHALOSPORINS; ll1 12:32 Levofloxacin; ll1 12:32 Augmentin; ll1 12:32 Valium; ll1 12:32 Acrylic Acid and Acrylates; ll1 12:32 Neomycin Sulfate; ll1 12:32 gain detergent; ll1 12:32 Chocolate; ll1 12:32 lamotrigine; ll1 - PMHx: 12:34 Bipolar disorder; CEPHALGIA; Hypertension; Kidney stones; LARYNGITIS; TIA; ll1 - PSHx: 12:34 see list; ll1 - Immunization history:: Client reports receiving the 2nd dose of the Covid vaccine. - Social history:: Smoking status: Patient denies any tobacco usage or history of. ROS: 13:14 Constitutional: Negative for fever, chills, and weight loss, Cardiovascular: Negative pm1 for chest pain, palpitations, and edema. 13:14 ENT: Negative for injury, pain, and discharge, Abdomen/GI: Negative for abdominal pain, nausea, vomiting, diarrhea, and constipation, Back: Negative for injury and pain, MS/Extremity: Negative for injury and deformity, Skin: Negative for injury, rash, and discoloration, Neuro: Negative for headache, weakness, numbness, tingling, and seizure. 13:14 Respiratory: Positive for cough, clear sputum with streaks of bright red blood, SOB that has resolved. 13:14 All other systems are negative. Exam: 13:14 Constitutional: This is a well developed, well nourished patient who is awake, alert, pm1 and in no acute distress. Head/Face: Normocephalic, atraumatic. 13:14 Back: No spinal tenderness. No costovertebral tenderness. Full range of motion. Skin: Warm, dry with normal turgor. Normal color with no rashes, no lesions, and no evidence of cellulitis. MS/ Extremity: Pulses equal, no cyanosis. Neurovascular intact. Full, normal range of motion. 13:14 Eyes: Exam is negative for acute changes, Periorbital structures: no acute changes, Pupils: no acute changes, Extraocular movements: no acute changes, Conjunctiva: no acute changes, no injection. 13:14 ENT: Exam is negative for acute changes, External ear(s): no acute changes, Ear canal(s): no acute changes, TM's: no acute changes, Mouth: no acute changes, Lips: normal, moist, Oral mucosa: normal, pink and intact, moist, Posterior pharynx: no acute changes. 13:14 Cardiovascular: Exam negative for acute changes, Rate: normal, Rhythm: regular, Pulses: no pulse deficits are appreciated, Heart sounds: normal, normal S1and S2. 13:14 Respiratory: Exam negative for acute changes, respiratory distress, shortness of breath, Breath sounds: are clear throughout. 13:14 Neuro: Exam negative for acute changes, Orientation: is normal, Mentation: is normal, Motor: is normal, moves all fours. Vital Signs: 12:35 BP 169 / 69; Pulse 77; Resp 17; Temp 98.4; Pulse Ox 98% on R/A; Weight 70.31 kg; Height ll1 5 ft. 1 in. (154.94 cm); Pain 7/10; 14:00 BP 172 / 76; Pulse 72; Resp 18; Pulse Ox 95% on R/A; kr3 15:00 BP 175 / 84; Pulse 68; Resp 18; Pulse Ox 96% on R/A; kr3 16:00 BP 161 / 72; Pulse 66; Resp 18; Pulse Ox 97% on R/A; kr3 17:00 BP 183 / 68; Pulse 67; Resp 18; Pulse Ox 99% on R/A; kr3 17:38 BP 152 / 75; Pulse 64; Resp 18; Pulse Ox 99% on R/A; kr3 12:35 Body Mass Index 29.29 (70.31 kg, 154.94 cm) ll1 MDM: 13:16 Patient medically screened. pm1 15:23 Data reviewed: vital signs. Data interpreted: Pulse oximetry: on room air is 98 %. pm1 Interpretation: normal. 17:09 Counseling: I had a detailed discussion with the patient and/or guardian regarding: the pm1 historical points, exam findings, and any diagnostic results supporting the discharge/admit diagnosis, lab results, radiology results, the need for outpatient follow up, to return to the emergency department if symptoms worsen or persist or if there are any questions or concerns that arise at home. 10/28 13:13 Order name: Basic Metabolic Panel; Complete Time: 14:59 pm1 10/28 13:13 Order name: CBC with Diff; Complete Time: 14:50 pm1 10/28 13:13 Order name: D-Dimer; Complete Time: 15:11 pm1 10/28 13:13 Order name: LFT's; Complete Time: 14:59 pm1 10/28 13:13 Order name: Magnesium; Complete Time: 14:59 pm1 10/28 13:13 Order name: NT PRO-BNP; Complete Time: 14:59 pm1 10/28 13:13 Order name: PT-INR; Complete Time: 15:11 pm1 10/28 13:13 Order name: Troponin HS; Complete Time: 14:59 pm1 10/28 13:13 Order name: XRAY Chest (1 view); Complete Time: 14:18 pm1 10/28 13:13 Order name: EKG; Complete Time: 13:14 pm1 10/28 13:13 Order name: Cardiac monitoring; Complete Time: 15:12 pm1 10/28 13:13 Order name: EKG - Nurse/Tech; Complete Time: 14:12 pm1 10/28 13:13 Order name: IV Saline Lock; Complete Time: 14:29 pm1 10/28 15:11 Order name: CT Chest For PE Angio; Complete Time: 15:39 pm1 10/28 13:13 Order name: Labs collected and sent; Complete Time: 14:29 pm1 10/28 13:13 Order name: O2 Per Protocol; Complete Time: 15:03 pm1 10/28 13:13 Order name: O2 Sat Monitoring; Complete Time: 15:03 pm1 EC:10 Rate is 69 beats/min. Rhythm is regular, Normal Sinus Rhythm. QRS [place] is Normal. [place] pm1 interval is normal. QRS interval is normal. QT interval is normal. No Q waves. T waves are Normal. No ST changes noted. Clinical impression: Normal sinus rhythm with sinus arrhythmia. Normal EKG. Administered Medications: No medications were administered Disposition Summary: 10/28/22 17:11 Discharge Ordered Location: Home pm1 Problem: new pm1 Symptoms: have improved pm1 Condition: Stable pm1 Diagnosis - Hemoptysis pm1 Followup: pm1 - With: Emergency Department - When: As needed - Reason: Worsening of condition Followup: pm1 - With: Private Physician - When: 2 - 3 days - Reason: Recheck today's complaints, Continuance of care, Re-evaluation by your physician Discharge Instructions: - Discharge Summary Sheet pm1 - Hemoptysis pm1 Forms: - Medication Reconciliation Form pm1 - Thank You Letter pm1 - Antibiotic Education pm1 - Prescription Opioid Use pm1 Prescriptions: - Zithromax Z-Benja 250 mg Oral Tablet - take 1 tablet by ORAL route as directed for 5 days Day 1 - take two (2) tablets pm1 one time. Day 2, 3, 4 , 5 take one (1) tablet once daily.; 6 tablet; Refills: 0, Product Selection Permitted - Guaifenesin AC 10-100 mg/5 mL Oral Liquid - take 10 milliliters by ORAL route every 4 hours As needed; 240 milliliter; pm1 Refills: 0, Product Selection Permitted Signatures: Dispatcher [employer] EDMS Idris Barbosa NP VISCOSE CELLAR CHARGE HAND pm1 Romeo Church RN RN ll1 Corrections: (The following items were deleted from the chart) 17:11 17:11 Acute upper respiratory infection, unspecified pm1 pm1
--- NOTE | 2022-10-28 17:11 | ER ---
Nurse's Notes [facility] Name: Vonnie Phillips Age: 71 yrs Sex: Female : 1950 Arrival Date: 10/28/2022 Time: 12:20 Bed 14 Private MD: Diagnosis: Hemoptysis;Acute upper respiratory infection, unspecified Presentation: 10/28 12:35 Chief complaint: Patient states: Cough with bright red blood in it started after 0130 ll1 am. No fever. Slight SOB. Coronavirus screen: Vaccine status: Patient reports receiving the 2nd dose of the covid vaccine. Client denies travel out of the [place] in the last 14 days. cough unrelated to allergies, difficulty breathing, shortness of breath, Client presents with at least one sign or symptom that may indicate coronavirus-19. Standard/surgical mask placed on the client. Ebola Screen: Patient denies travel to an Ebola-affected area in the 21 days before illness onset. Initial Sepsis Screen: Does the patient meet any 2 criteria? No. Patient's initial sepsis screen is negative. Does the patient have a suspected source of infection? Yes: Productive cough/pneumonia. Risk Assessment: Do you want to hurt yourself or someone else? Patient reports no desire to harm self or others. Onset of symptoms was October 28, 2022. 12:35 Method Of Arrival: Ambulatory ll1 12:35 Acuity: DARBY 3 ll1 Triage Assessment: 12:37 General: Appears uncomfortable, Behavior is calm, cooperative, appropriate for age. ll1 Pain: Complains of pain in low back (chronic) Pain currently is 7 out of 10 on a pain scale. Quality of pain is described as aching. Respiratory: Reports cough that is pain with cough Onset: The symptoms/episode began/occurred this morning, the patient has mild shortness of breath. Historical: - Allergies: 12:32 flexeprol; ll1 12:32 Keflex; ll1 12:32 Meprobamate; ll1 12:32 PENICILLINS; ll1 12:32 Sulfa (Sulfonamide Antibiotics); ll1 12:32 Talwin; ll1 12:32 Topamax; ll1 12:32 CEPHALOSPORINS; ll1 12:32 Levofloxacin; ll1 12:32 Augmentin; ll1 12:32 Valium; ll1 12:32 Acrylic Acid and Acrylates; ll1 12:32 Neomycin Sulfate; ll1 12:32 gain detergent; ll1 12:32 Chocolate; ll1 12:32 lamotrigine; ll1 - PMHx: 12:34 Bipolar disorder; CEPHALGIA; Hypertension; Kidney stones; LARYNGITIS; TIA; ll1 - PSHx: 12:34 see list; ll1 - Immunization history:: Client reports receiving the 2nd dose of the Covid vaccine. - Social history:: Smoking status: Patient denies any tobacco usage or history of. Screenin:38 [facility] ED Fall Risk Assessment (Adult) History of falling in the last 3 months, kr3 including since admission No falls in past 3 months (0 pts) Confusion or Disorientation No (0 pts) Intoxicated or Sedated No (0 pts) Impaired Gait No (0 pts) Mobility Assist Device Used No (0 pt) Altered Elimination No (0 pt) Score/Fall Risk Level 0 - 2 = Low Risk Oriented to surroundings, Maintained a safe environment, Educated pt \T\ family on fall prevention, incl call for assistance when getting out of bed, Hourly rounding (assess needs \T\ fall precautionary measures) done. Abuse screen: Denies threats or abuse. Nutritional screening: No deficits noted. Tuberculosis screening: No symptoms or risk factors identified. Assessment: 12:50 General: Appears in no apparent distress. comfortable, Behavior is calm, cooperative, kr3 appropriate for age. Pain: Denies pain. Neuro: Level of Consciousness is awake, alert, obeys commands, Oriented to person, place, time, situation. Cardiovascular: Patient's skin is warm and dry. Respiratory: Airway is patent Respiratory effort is even, unlabored, Respiratory pattern is regular, symmetrical. GI: Abdomen is round non-distended. : No signs and/or symptoms were reported regarding the genitourinary system. EENT: Reports coughing up blood tinged flem. Derm: No signs and/or symptoms reported regarding the dermatologic system. Musculoskeletal: Circulation, motion, and sensation intact. 14:00 Reassessment: Patient appears in no apparent distress at this time. Patient and/or kr3 family updated on plan of care and expected duration. Pain level reassessed. Patient is alert, oriented x 3, equal unlabored respirations, skin warm/dry/pink. 15:00 Reassessment: Patient appears in no apparent distress at this time. Patient and/or kr3 family updated on plan of care and expected duration. Pain level reassessed. Patient is alert, oriented x 3, equal unlabored respirations, skin warm/dry/pink. 16:00 Reassessment: Patient appears in no apparent distress at this time. Patient and/or kr3 family updated on plan of care and expected duration. Pain level reassessed. Patient is alert, oriented x 3, equal unlabored respirations, skin warm/dry/pink. 17:00 Reassessment: Patient appears in no apparent distress at this time. Patient and/or kr3 family updated on plan of care and expected duration. Pain level reassessed. Patient is alert, oriented x 3, equal unlabored respirations, skin warm/dry/pink. 17:40 Cardiovascular: Rhythm is regular. kr3 Vital Signs: 12:35 BP 169 / 69; Pulse 77; Resp 17; Temp 98.4; Pulse Ox 98% on R/A; Weight 70.31 kg; Height ll1 5 ft. 1 in. (154.94 cm); Pain 7/10; 14:00 BP 172 / 76; Pulse 72; Resp 18; Pulse Ox 95% on R/A; kr3 15:00 BP 175 / 84; Pulse 68; Resp 18; Pulse Ox 96% on R/A; kr3 16:00 BP 161 / 72; Pulse 66; Resp 18; Pulse Ox 97% on R/A; kr3 17:00 BP 183 / 68; Pulse 67; Resp 18; Pulse Ox 99% on R/A; kr3 17:38 BP 152 / 75; Pulse 64; Resp 18; Pulse Ox 99% on R/A; kr3 12:35 Body Mass Index 29.29 (70.31 kg, 154.94 cm) ll1 ED Course: 12:20 Patient arrived in ED. rg4 12:32 Arm band placed on. ll1 12:37 Triage completed. ll1 12:40 Bed in low position. Call light in reach. Side rails up X 1. kr3 13:02 Idris Barbosa NP is PHCP. pm1 13:02 Bora Reardon MD is Attending Physician. pm1 13:42 Ade Tyler RN is Primary Nurse. kr3 13:47 XRAY Chest (1 view) In Process Unspecified. EDMS 14:12 EKG done, by ED staff. bc6 14:29 Initial lab(s) drawn, by me, sent to lab. Inserted saline lock: 20 gauge in right em1 wrist, using aseptic technique. Blood collected. 15:28 CT Chest For PE Angio In Process Unspecified. EDMS 17:39 No provider procedures requiring assistance completed. IV discontinued, intact, kr3 bleeding controlled, No redness/swelling at site. Pressure dressing applied. Administered Medications: No medications were administered Medication: 17:40 VIS not applicable for this client. kr3 Outcome: 17:11 Discharge ordered by MD. pm1 17:40 Discharged to home ambulatory. kr3 17:40 Condition: stable 17:40 Discharge instructions given to patient, Instructed on discharge instructions, follow up and referral plans. medication usage, Demonstrated understanding of instructions, follow-up care, medications, Prescriptions given X 2. 17:41 Patient left the ED. kr3 Signatures: Dispatcher [employer] EDMS Ziyad Nichole em1 Idris Barbosa, HO DOUBLE SPINDLE SHAPER OPERATOR pm1 Angelic Preciado rg4 Romeo Church, RN RN ll1 Ade Tyler, KELLY RN kr3 Sonia Marquez bc6
[2022-10-28 18:03] VITALS: TEMP 98.4
[2022-10-28 18:07] VITALS: O2SAT 99
[2022-10-28 18:08] VITALS: BP 152/75
--- NOTE | 2022-10-30 17:51 | EKG ---
Test Date: 2022-10-28 Test Time: 14:07:08 Chief Recordist: ROBERTO MEASUREMENT RESULTS: Intervals: Rate: 65 DE: 148 QRSD: 76 QT: 424 QTc: 440 [place]: P: 9 DE: 148 QRS: -7 T: 66 INTERPRETIVE STATEMENTS: Sinus rhythm with premature atrial complexes Otherwise normal ECG Compared to ECG 12/30/2018 14:05:25 Atrial premature complex(es) now present ST (T wave) deviation no longer present Electronically Signed On 10-30-22 17:46:07 SHIPPING AND RECEIVING ASSISTANT by Ellis Silver
--- NOTE | 2022-10-30 17:51 | EKG ---
Test Date: 2022-10-28 Test Time: 14:07:46 Systems Manager: ROBERTO MEASUREMENT RESULTS: Intervals: Rate: 69 [place]: 146 QRSD: 76 QT: 424 QTc: 454 [place]: P: -2 [place]: 146 QRS: -7 T: 64 INTERPRETIVE STATEMENTS: Normal sinus rhythm with sinus arrhythmia Normal ECG Compared to ECG 10/28/2022 14:07:08 Atrial premature complex(es) no longer present Electronically Signed On 10-30-22 17:46:05 BATCH ANALYST by Ellis Silver
== END 2022-10-28 17:41 | disposition home or self-care (01) ==
LOC: ER 12:15
DX: J06.9 Acute upper respiratory infection, unspecified (principal); I10 Essential (primary) hypertension; Z88.0 Allergy status to penicillin; Z88.1 Allergy status to other antibiotic agents; Z88.2 Allergy status to sulfonamides; Z88.3 Allergy status to other anti-infective agents; Z88.5 Allergy status to narcotic agent; Z88.8 Allergy status to other drugs, medicaments and biological substances; Z91.018 Allergy to other foods; Z91.048 Other nonmedicinal substance allergy status
CPT/HCPCS: 93005; 85025; 80048; 36415; 83735; 85610; 85379; 80076; 84484; 83880; 71275; 71045; 99284; Q9967